=== PATIENT | male | born 1945 | race Two or more races ===

== ENCOUNTER 2016-03-27 11:05 | Outpatient (CLI) | payer MEDICARE | END 2016-03-27 23:59 | disposition home or self-care (01) | LOC: WOU 11:05 | PROVIDERS: ATTEND Podiatrist Foot & Ankle Surgery | DX: L84 Corns and callosities (principal); M20.41 Other hammer toe(s) (acquired), right foot; E11.622 Type 2 diabetes mellitus with other skin ulcer; L97.311 Non-pressure chronic ulcer of right ankle limited to breakdown of skin; B35.1 Tinea unguium; Z94.7 Corneal transplant status; I10 Essential (primary) hypertension; H40.9 Unspecified glaucoma | CPT/HCPCS: A6402; G0463 ==

== ENCOUNTER 2016-04-11 10:23 | Outpatient (CLI) | payer MEDICARE | END 2016-04-11 23:59 | disposition home or self-care (01) | LOC: WOU 10:23 | PROVIDERS: ATTEND Podiatrist Foot & Ankle Surgery | DX: E11.621 Type 2 diabetes mellitus with foot ulcer (principal); L97.511 Non-pressure chronic ulcer of other part of right foot limited to breakdown of skin; E11.42 Type 2 diabetes mellitus with diabetic polyneuropathy; I10 Essential (primary) hypertension; E11.52 Type 2 diabetes mellitus with diabetic peripheral angiopathy with gangrene | CPT/HCPCS: 11042; A6402 ==

== ENCOUNTER 2016-04-17 11:02 | Outpatient (CLI) | payer MEDICARE | END 2016-04-17 23:59 | disposition home or self-care (01) | LOC: WOU 11:02 | PROVIDERS: ATTEND Podiatrist Foot & Ankle Surgery | DX: E11.621 Type 2 diabetes mellitus with foot ulcer (principal); L97.513 Non-pressure chronic ulcer of other part of right foot with necrosis of muscle; L97.313 Non-pressure chronic ulcer of right ankle with necrosis of muscle; E11.622 Type 2 diabetes mellitus with other skin ulcer; M20.5X9 Other deformities of toe(s) (acquired), unspecified foot | CPT/HCPCS: 11043; A6402 ==

== ENCOUNTER 2016-05-08 10:10 | Outpatient (CLI) | payer MEDICARE | END 2016-05-08 23:59 | disposition home or self-care (01) | LOC: WOU 10:10 | PROVIDERS: ATTEND Podiatrist Foot & Ankle Surgery | DX: E11.621 Type 2 diabetes mellitus with foot ulcer (principal); L97.411 Non-pressure chronic ulcer of right heel and midfoot limited to breakdown of skin; M20.41 Other hammer toe(s) (acquired), right foot; H40.9 Unspecified glaucoma; I10 Essential (primary) hypertension | CPT/HCPCS: 11043; A6402 ==

== ENCOUNTER 2016-05-23 10:12 | Outpatient (CLI) | payer MEDICARE | END 2016-05-23 23:59 | disposition home or self-care (01) | LOC: WOU 10:12 | PROVIDERS: ATTEND Podiatrist Foot & Ankle Surgery | DX: E11.621 Type 2 diabetes mellitus with foot ulcer (principal); L97.514 Non-pressure chronic ulcer of other part of right foot with necrosis of bone; L02.415 Cutaneous abscess of right lower limb; M20.5X9 Other deformities of toe(s) (acquired), unspecified foot; Z94.7 Corneal transplant status; M20.10 Hallux valgus (acquired), unspecified foot | CPT/HCPCS: 11044; 87070; A6402; 87186-TC ==

== ENCOUNTER 2016-06-06 08:35 | Outpatient (CLI) | payer MEDICARE | END 2016-06-06 23:59 | disposition home or self-care (01) | LOC: WOU 08:35 | PROVIDERS: ATTEND Podiatrist Foot & Ankle Surgery | DX: E11.621 Type 2 diabetes mellitus with foot ulcer (principal); L97.514 Non-pressure chronic ulcer of other part of right foot with necrosis of bone; E11.69 Type 2 diabetes mellitus with other specified complication; M86.171 Other acute osteomyelitis, right ankle and foot; L03.115 Cellulitis of right lower limb | CPT/HCPCS: 11044; A6402 ==

== ENCOUNTER 2016-06-12 07:55 | Outpatient (CLI) | payer MEDICARE ==
[2016-06-12] MEDS ORDERED: INSU100I24 SQ ×2 (14:41)
[2016-06-12] MEDS ORDERED: METF500T4 PO (14:41)
[2016-06-12] MEDS ORDERED: TIMO5DRO4 EACHEYE (14:41)
[2016-06-12] MEDS ORDERED: PRED5DRO7 EACHEYE (14:41)
[2016-06-12] MEDS ORDERED: LOSA50TA21 PO (14:41)
[2016-06-12] MEDS ORDERED: CEPH-570 PO (14:41)
[2016-06-12] MEDS ORDERED: VALA500T35 PO (14:41)
== END 2016-06-12 23:59 | disposition home or self-care (01) ==
LOC: WOU 07:55
PROVIDERS: ATTEND Podiatrist Foot & Ankle Surgery
DX: E11.69 Type 2 diabetes mellitus with other specified complication (principal); L97.514 Non-pressure chronic ulcer of other part of right foot with necrosis of bone; L03.031 Cellulitis of right toe; M20.41 Other hammer toe(s) (acquired), right foot; E11.40 Type 2 diabetes mellitus with diabetic neuropathy, unspecified; M20.11 Hallux valgus (acquired), right foot
CPT/HCPCS: A6402; G0463

== ENCOUNTER 2016-06-12 13:18 | Inpatient (IN) | payer MEDICARE ==
[~2016-06-12] VITALS: Ht 175.3 cm; Wt 77.1 kg
[2016-06-12 14:00] VITALS: BP 168/80
[2016-06-12] MEDS ORDERED: LOSA50TA21 PO (14:41)
[2016-06-12] MEDS ORDERED: METF500T4 PO (14:41)
[2016-06-12] MEDS ORDERED: TIMO5DRO4 EACHEYE (14:41)
[2016-06-12] MEDS ORDERED: INSU100I24 SQ ×2 (14:41)
[2016-06-12] MEDS ORDERED: PRED5DRO7 EACHEYE (14:41)
[2016-06-12] MEDS ORDERED: CEPH-570 PO (14:41)
[2016-06-12] MEDS ORDERED: VALA500T35 PO (14:41)
--- NOTE | 2016-06-12 14:45 | NUR ---
MS RN ADMITTING NOTES: PT ALERT AND ORIENTED X4. PT RESTING ON BED. PHOTO TAKEN ON RIGHT 3RD TOE. IV GAUGE 22 STARTED ON RIGHT FOREARM. DR. BOWERS AWARE OF ADMISSION. NO SIGNS AND SYMPTOMS OF DISTRESS OR SOB.
[2016-06-12 15:18] LABS: EOSINOPHILS # (AUTO) 0.1 /CMM (0.0-0.7); EOSINOPHILS % (AUTO) 3.6 % (0.0-6.0); HEMATOCRIT 38 % (39-51); HEMOGLOBIN 12.7 g/dL (13.5-17.5); LYMPHOCYTES # (AUTO) 1.2 /CMM (0.8-4.8); LYMPHOCYTES % (AUTO) 31.4 % (20.0-44.0); MEAN CORPUSCULAR HEMOGLOBIN 34 PG (26.0-33.0); MEAN CORPUSCULAR HGB CONC 34 g/dl (31.0-36.0); MEAN CORPUSCULAR VOLUME 99 fL (80-96); MONOCYTES # (AUTO) 0.3 /CMM (0.1-1.30); MONOCYTES % (AUTO) 6.7 % (2.0-12.0); NEUTROPHILS # (AUTO) 2.2 /CMM (1.8-8.9); NEUTROPHILS % (AUTO) 57.3 % (43.0-81.0); PLATELET COUNT (AUTO) 259 /CMM (150-450); RDW COEFFICIENT OF VARIATION 12.7 (11.5-15.0); RED BLOOD CELL COUNT(AUTO) 3.79 MIL/uL (4.5-6.0); WHITE BLOOD COUNT (AUTO) 3.8 K/uL (4.3-11.0)
[2016-06-12 16:00] VITALS: BP 135/76
[2016-06-12] MEDS ORDERED: ACETAMINOPHEN 325 MG TABLET PO PRN (16:00)
[2016-06-12] MEDS ORDERED: ONDANSETRON HCL/PF 4 MG/2 ML VIAL IVP PRN (16:00)
[2016-06-12] MEDS ORDERED: MAG HYDROX/AL HYDROX/SIMETH 30 ML UDC PO PRN (16:00)
[2016-06-12] MEDS ORDERED: PIPERACILLIN /TAZOBACTAM 4.5 G in IV D5W 50 ML IV SCH (16:00)
[2016-06-12] MEDS ORDERED: MAGNESIUM HYDROXIDE 30 ML UDC PO PRN (16:00)
[2016-06-12] MEDS ORDERED: DEXTROSE 50%-WATER 50 ML DISP.SYRIN IV PRN (16:00)
[2016-06-12] MEDS ORDERED: ZOLPIDEM TARTRATE 5 MG TABLET PO PRN (16:00)
[2016-06-12] MEDS ORDERED: Z GUARD REMEDY 2 OZ OINT TP PRN (16:00)
[2016-06-12] MEDS ORDERED: VANCOMYCIN 1 GM in IV D5W 250 ML IV SCH (16:00)
[2016-06-12 16:02] LABS: ALBUMIN 3.5 g/dL (3.4-5.0); BILIRUBIN,TOTAL 0.4 mg/dL (0.2-1.0); CALCIUM, SERUM 8.5 mg/dL (8.5-10.1); CREATININE 0.9 mg/dL (0.6-1.3); POTASSIUM 4.1 mmol/L (3.5-5.1); TOTAL PROTEIN, SERUM 6.7 g/dL (6.4-8.2)
[2016-06-12] MEDS ORDERED: FEE PK DOSING 1 MIN EA MC ONE (16:47)
[2016-06-12] MEDS ORDERED: TIMOLOL 0.5% SOLN OPHTH 5 ML BOTTLE EACHEYE SCH (17:00)
[2016-06-12] MEDS: LOSARTAN POTASSIUM 50 MG TABLET PO SCH (17:26)
[2016-06-12] MEDS: VALACYCLOVIR HCL 500 MG TABLET PO SCH (17:26)
[2016-06-12] MEDS: METFORMIN 500 MG TABLET PO SCH (17:27)
[2016-06-12] MEDS: ENOXAPARIN SODIUM 40 MG/0.4 ML DISP.SYRIN SQ SCH (17:29)
[2016-06-12] MEDS: BLOOD SUGAR DIAGNOSTIC 1 EACH STRIP VI SCH ×2 (17:41→21:31)
[2016-06-12] MEDS ORDERED: IV SET PRIMARY PUMP SET 1 EA INFUS.SET MC ONE (17:56)
[2016-06-12] MEDS ORDERED: SECONDARY IV SET 1 EA INFUS.SET MC ONE ×2 (17:57→19:56)
[2016-06-12] MEDS ORDERED: IV NS 0.9% 250 ML IV ONE (17:57)
[2016-06-12] MEDS: VANCOMYCIN 1 GM in IV D5W 250 ML IV SCH (18:07)
[2016-06-12] MEDS: INSULIN REGULAR, HUMAN 100 UNIT/ML 3 ML VIAL SQ PRN (18:18)
[2016-06-12] MEDS: PIPERACILLIN /TAZOBACTAM 3.375 G in IV D5W 50 ML IV SCH ×2 (19:02→23:41)
--- NOTE | 2016-06-12 19:12 | NUR ---
MS RN CLOSING NOTES: PT IS ALERT AND ORIENTED X4. NEEDS ATTENDED AND ANTICIPATED. CLEAN AND DRY. ENDORSED TO PROCESS IMPROVEMENT CONSULTANT TO CONTINUE CARE.
--- NOTE | 2016-06-12 19:51 | NUR ---
RECEIVED PATIENT IN BED, ALERT AND ORIENTED X4, CALM, NO DISTRESS, NO SOB, ON ROOM AIR, ABLE TO VERBALIZE NEEDS, DENIES ANY PAIN AT THIS TIME, RIGHT FOOT IS OFFLOADED, WILL HAVE DEBRIDEMENT IN AM. EXPLAINED TO PATIENT NPO AFTER MIDNIGHT, PATIENT VERBALIZED UNDERSTANDING. NEEDS ATTENDED, CALL LIGHT WITHIN REACH.
[2016-06-12 20:00] VITALS: BP 134/71
[2016-06-12] MEDS: INSULIN DETEMIR 100 UNIT/ML CARTRIDGE SQ SCH (21:37)
[2016-06-12] MEDS: *INSULIN REGULAR(HUMULIN R)HUM 100 UNIT/ML VIAL SQ PRN (21:38)
--- NOTE | 2016-06-12 21:38 | NUR ---
LEVEMIR 20 UNITS AND INSULIN HELD. PATIENT IS NPO AFTER MIDNIGHT FOR SCHEDULED DEBRIDEMENT IN AM. BG 179 MG/DL
[2016-06-13] MEDS: VANCOMYCIN 1 GM in IV D5W 250 ML IV SCH ×2 (04:08→16:25)
[2016-06-13] MEDS: PIPERACILLIN /TAZOBACTAM 3.375 G in IV D5W 50 ML IV SCH ×3 (05:32→18:01)
[2016-06-13] MEDS: BLOOD SUGAR DIAGNOSTIC 1 EACH STRIP VI SCH ×4 (06:18→21:32)
--- NOTE | 2016-06-13 06:51 | NUR ---
PATIENT IN BED, ALERT AND AWAKE, NO DISTRESS, NO COMPLAIN OF PAIN. NPO SINCE MIDNIGHT FOR RIGHT FOOT DEBRIDEMENT IN AM. ALL DUE MEDICATIONS GIVEN, CALL LIGHT WITHIN REACH.
--- NOTE | 2016-06-13 06:54 | NUR ---
BG 129 MG/DL, NO INSULIN COVERAGE, NPO SINCE MIDNIGHT FOR RIGHT FOOT DEBRIDEMENT
[2016-06-13 07:12] LABS: BASOPHILS % (AUTO) 1.1 % (0.0-2.0); EOSINOPHILS # (AUTO) 0.2 /CMM (0.0-0.7); EOSINOPHILS % (AUTO) 5.1 % (0.0-6.0); HEMATOCRIT 40 % (39-51); HEMOGLOBIN 13.9 g/dL (13.5-17.5); LYMPHOCYTES # (AUTO) 1.2 /CMM (0.8-4.8); LYMPHOCYTES % (AUTO) 34.8 % (20.0-44.0); MEAN CORPUSCULAR HEMOGLOBIN 34 PG (26.0-33.0); MEAN CORPUSCULAR HGB CONC 35 g/dl (31.0-36.0); MEAN CORPUSCULAR VOLUME 98 fL (80-96); MONOCYTES # (AUTO) 0.3 /CMM (0.1-1.30); MONOCYTES % (AUTO) 7.6 % (2.0-12.0); NEUTROPHILS # (AUTO) 1.8 /CMM (1.8-8.9); NEUTROPHILS % (AUTO) 51.4 % (43.0-81.0); PLATELET COUNT (AUTO) 263 /CMM (150-450); RDW COEFFICIENT OF VARIATION 12.6 (11.5-15.0); WHITE BLOOD COUNT (AUTO) 3.4 K/uL (4.3-11.0)
--- NOTE | 2016-06-13 07:17 | NUR ---
MS/RN OPENING NOTES PATIENT RECEIVED AWAKE IN BED IN NO ACUTE SIGNS OF DISTRESS. ALERT AND ORIENTED X4. ABLE TO VERBALIZED NEEDS, NO C/O PAIN OR DISCOMFORTS VOICED AT THIS TIME. ON ROOM AIR, TOLERATING WELL WITH NO SOB NOTED. IV ACCESS TO RIGHT HAND G# 22 INTACT AND PATENT. RIGHT FOOT IS OFFLOADED, FOR DEBRIDEMENT OF RIGHT FOOT THIS MORNING. NPO AFTER MIDNIGHT ENFORCED AND PATIENT VERBALIZED UNDERSTANDING. CALL LIGHT WITHIN REACH. WILL CONTINUE TO MONITOR ACCORDINGLY.
[2016-06-13] MEDS: PANTOPRAZOLE 40 MG TABLET.DR PO SCH (07:35)
[2016-06-13 07:58] LABS: THYROID STIMULATING HORMONE 2.305 uIU/mL (0.358-3.74)
[2016-06-13 08:10] LABS: CALCIUM, SERUM 8.7 mg/dL (8.5-10.1); CREATININE 0.9 mg/dL (0.6-1.3); MAGNESIUM 1.9 mg/dL (1.8-2.4); PHOSPHORUS 3.3 mg/dL (2.5-4.9); POTASSIUM 3.8 mmol/L (3.5-5.1)
[2016-06-13] MEDS: METFORMIN 500 MG TABLET PO SCH ×2 (08:41→16:27)
[2016-06-13] MEDS: VALACYCLOVIR HCL 500 MG TABLET PO SCH ×2 (08:41→16:27)
[2016-06-13] MEDS: LOSARTAN POTASSIUM 50 MG TABLET PO SCH ×2 (08:42→16:27)
[2016-06-13] MEDS: prednisoLONE ACET 1% OPHT DROP 5 ML BOTTLE EACHEYE SCH (08:43)
[2016-06-13] MEDS: TIMOLOL 0.5% SOLN OPHTH 5 ML BOTTLE LEFTEYE SCH ×2 (08:45→16:26)
[2016-06-13] MEDS ORDERED: MIDAZOLAM HCL 2 MG/2ML VIAL ONE (09:08)
[2016-06-13] MEDS ORDERED: FENTANYL PF 100MCG/2ML AMPUL ONE (09:08)
--- NOTE | 2016-06-13 09:24 | NUR ---
RN NOTES PATIENT LEFT UNIT VIA WHEELCHAIR TO OR FOR RIGHT FOOT DEBRIDEMENT. ALERT AND ORINETED X 4, NO C/O PAIN @ THIS TIME. ALL CONSENT'S FOR PROCEDURES SIGNED. PRE PROCEDURE CHECKLIST/ASSESSMENT DONE. WILL FOLLOW-UP
[2016-06-13] MEDS ORDERED: LIDOCAINE HCL/PF 1% 30 ML SDV ONE (09:30)
--- NOTE | 2016-06-13 10:31 | NUR ---
RN/NOTES PATIENT CAME BACK FROM OR/RECOVERY ROOM POST DEBRIDEMENT OF RIGHT FOOT 3RD TOE (ARTHROPLASTY). ALERT AND ORIENTED X 3, NO COMPLAINTS OF PAIN @ THIS TIME. DRESSING TO RIGHT FOOT IN PLACE, NO BLEEDING NOTED. RECOMMENDED TO RESUME MEDS AND DIET, ELEVATE RIGHT FOOT WITH 2 PILLOWS. V/S CHECKED; 137/73MMHG, HR 77, R 18, 97.9F AND 02 SAT 94%. WILL CONTINUE TO MONITO ACCORDINGLY. WILL CONTINUE TO MONITOR.
--- NOTE | 2016-06-13 13:06 | NUR ---
GENERATOR MECHANIC WOUND CARE WILL DEFER TO DPM DR CALIX AT THIS TIME. PATIENT WITH ADRY AT 22
[2016-06-13] MEDS: LACTOBACILLUS RHAMNOSUS GG 1 EACH CAP.SPRINK PO SCH (16:27)
[2016-06-13] MEDS: INSULIN REGULAR, HUMAN 100 UNIT/ML 3 ML VIAL SQ PRN (17:13)
--- NOTE | 2016-06-13 18:38 | NUR ---
MS/RN CLOSING NOTES PATIENT IN BED ALERT AND ORIENTED X4, NO ACUTE SIGNS OF DISTRESS NOTED DURING THE DAY. PATIENT WITH NO VERBALIZATION OF PAIN EVEN AFTER DEBRIDEMENT OF RIGHT FOOT 3RD TOE. ON ROOM AIR, TOLERATING WELL WITH NO SOB NOTED. IV ACCESS TO RIGHT HAND G# 22 INTACT AND PATENT. RIGHT FOOT IS OFFLOADED USING TWO PILLOWS. CALL LIGHT WITHIN REACH. ALL NEEDS AND CARE PROVIDED. DUE MEDS GIVEN ORDERED. WILL ENDORSED TO SCIENTIFIC TECHNICAL WRITER FOR CONTINUITY OF CARE
--- NOTE | 2016-06-13 19:45 | NUR ---
ENGRAVING PRESS OPERATOR INITIAL NOTES RECEIVED REPORT FROM AM NURSE LASHON, CHECKED, PT HE'S AWAKE AND ALERT WATCHING TV WITH SMILE ON HIS FACE. DRESSING DRY AND INTACT ON HIS RIGHT LOWER EXTREMITIES S/P WOUND DEBRIDEMENT WHICH IS DONE TODAY. RIGHT HAND HEPLOCK PATENT AND INTACT. I TOLD HIM ABOUT HIS MEDICATION AND MIDLINE INSERTION AND PT UNDERSTOOD WELL. KEPT HIS RIGHT LEG OFFLOAD AT ALL TIMES. WILL CONTINUE TO MONITOR. PLACE CALL LIGHT AT REACH.
[2016-06-13 20:00] VITALS: BP 144/73
[2016-06-13] MEDS: ENOXAPARIN SODIUM 40 MG/0.4 ML DISP.SYRIN SQ SCH (21:26)
[2016-06-13] MEDS: INSULIN DETEMIR 100 UNIT/ML CARTRIDGE SQ SCH (21:36)
[2016-06-13] MEDS: HYDROCODONE/APAP 5/325MG 1 EACH TABLET PO PRN (21:37)
[2016-06-13] MEDS: *INSULIN REGULAR(HUMULIN R)HUM 100 UNIT/ML VIAL SQ PRN (21:42)
--- NOTE | 2016-06-13 22:00 | NUR ---
INSTALLERS MECHANICAL/NOTES ROUTINE MEDS GIVEN AND BLOOD SUGAR CHECKED DONE 168, LEVEMIR GIVEN WELL REGULAR INSULIN , SNACKS ALSO SERVED. NO SIGNS OF HYPER/HYPO GLYCEMIA NOTED/ WILL CONTINUE TO MONITOR.
--- NOTE | 2016-06-14 | NUR ---
SAP MOBILITY ARCHITECT/NOTES PT SLEEPING COMFORTABLY IN BED WITHOUT ANY ACUTE DISTRESS NOTED. KEPT HIM COMFORTABLE AT ALL TIMES. WILL CONTINUE TO MONITOR. PLACE CALL LIGHT AT REACH.
[2016-06-14] MEDS: PIPERACILLIN /TAZOBACTAM 3.375 G in IV D5W 50 ML IV SCH ×5 (00:26→23:30)
[2016-06-14] MEDS: BLOOD SUGAR DIAGNOSTIC 1 EACH STRIP VI SCH ×4 (06:18→21:21)
[2016-06-14] MEDS: VANCOMYCIN 1 GM in IV D5W 250 ML IV SCH ×3 (06:20→21:20)
[2016-06-14] MEDS: PANTOPRAZOLE 40 MG TABLET.DR PO SCH (06:20)
--- NOTE | 2016-06-14 06:43 | NUR ---
SUPERVISOR FRAME ASSEMBLY/NOTES PT WOKE UP, BLOOD SUGAR CHECKED DONE 117, NO INSULIN GIVEN ORDERED. NO SIGNS OF HYPO GLYCEMIA NOTED. ROUTINE MED ALSO GIVEN. KEPT HIM COMFORTABLE AT ALL TIMES. WILL CONTINUE TO MONITOR.
--- NOTE | 2016-06-14 07:12 | NUR ---
MS CONTACT PRINTER DRY FILM CLOSING NOTES PT AWAKE AND ALERT WATCHING TV, DENIES ANY PAIN, DRESSING ON HIS RIGHT FOOT DRY AND INTACT. ALL DUE MEDS GIVEN. STABLE STEPHANI THE NIGHT AND SLEPT WELL. KEPT HIM COMFORTABLE AT ALL TIMES. PLACE CALL LIGHT AT REACH. PT STATED "THANK YOU ". WILL ENDORSE TO AM NURSE FOR CONTINUITY OF CARE.
--- NOTE | 2016-06-14 07:17 | NUR ---
MS/RN OPENING NOTES RECEIVED PATIENT IN BED AWAKE, ALERT AND ORIENTED X 4. ABLE TO VERBALIZED NEEDS AND WANTS, NO C/O PAIN OR DISCOMFORTS AT THIS TIME. RIGHT FOOT OFFLOADED WITH 2 PILLOWS. IV ACCESS ON RIGHT HAND G#22 INTACT AND PATENT. BED IN LOW POSITION AND LOCKED WITH CALL LIGHT WITH IN REACH. SAFETY MEASURES MAINTAINED. WILL CONTINUE TO MONITOR ACCORDINGLY
--- NOTE | 2016-06-14 08:00 | NUR ---
RN NOTES PELON GRAY INSERTED MIDLINE ON RIGHT UPPER ARM G# 18 WITH NO COMPLICATION OR BLEEDING NOTED.
[2016-06-14] MEDS: VALACYCLOVIR HCL 500 MG TABLET PO SCH ×2 (08:26→17:14)
[2016-06-14] MEDS: LOSARTAN POTASSIUM 50 MG TABLET PO SCH ×2 (08:26→17:24)
[2016-06-14] MEDS: METFORMIN 500 MG TABLET PO SCH ×2 (08:26→17:14)
[2016-06-14] MEDS: LACTOBACILLUS RHAMNOSUS GG 1 EACH CAP.SPRINK PO SCH ×2 (08:26→17:14)
[2016-06-14] MEDS: prednisoLONE ACET 1% OPHT DROP 5 ML BOTTLE EACHEYE SCH (08:27)
[2016-06-14] MEDS: TIMOLOL 0.5% SOLN OPHTH 5 ML BOTTLE LEFTEYE SCH ×2 (09:53→17:29)
[2016-06-14] MEDS: INSULIN REGULAR, HUMAN 100 UNIT/ML 3 ML VIAL SQ PRN (12:35)
--- NOTE | 2016-06-14 12:50 | NUR ---
RN NOTES PATIENT'S POST OP RIGHT BOOT CAME. PT EVALUATED PATIENT AND ABLE TO WALK WITH IT WITH WALKER AND ASSISTANCE. PATIENT ON WEIGHT BEARING ON RIGHT HEEL TOLERATED. WILL CONTINUE TO MONITOR.
[2016-06-14] MEDS: HYDROCODONE/APAP 5/325MG 1 EACH TABLET PO PRN (17:23)
--- NOTE | 2016-06-14 18:41 | NUR ---
MS/RN CLOSING NOTES PATIENT RESTING IN BED AT MODERATE HIGH BACKREST. ALERT AND ORIENTED X 4 WITH NO SIGNS OF ACUTE DISTRESS DURING SHIFT. VERBALLY RESPONSIVE WITH COMPLAINTS OF PAIN X 1 ON RIGHT FOOT, PRN NORCO 5/325MG GIVEN WITH GOOD RESULTS. RIGHT FOOT KEPT ELEVATED WITH 2 PILLOWS. IV ACCESS ON RIGHT HAND G#22 AND MIDLINE ON KADEN G# 18 INTACT AND PATENT. ANTIBIOTIC THERAPIES OF VANCOMYCIN IVPB AND ZOSYN IVPB ADMINISTERED WITH NO ADVERSE REACTIONS NOTED. ALL DUE MEDS GIVEN ORDERED AND TOLERATED. BED IN LOW POSITION AND LOCKED WITH CALL LIGHT WITH IN REACH. SAFETY MEASURES MAINTAINED. ALL NEEDS AND CARE WELL ATTENDED. WILL ENDORSED TO GREEN BUILDING ENERGY ENGINEER FOR CONTINUITY OF CARE.
--- NOTE | 2016-06-14 19:30 | NUR ---
RN NOTES RECEIVED PT. AWAKE ON BED, A/OX4, DRESSING ON THE RIGHT FOOT DRY AND INTACT, , DENIES PAIN, NO SOB, CALL LIGHT WITHIN REACH, SIDERAILS UPX2 CONTINUE TO MONITOR
[2016-06-14 20:00] VITALS: BP 161/75
[2016-06-14 20:20] VITALS: BP 161/81
[2016-06-14] MEDS: ENOXAPARIN SODIUM 40 MG/0.4 ML DISP.SYRIN SQ SCH (21:19)
[2016-06-14] MEDS: *INSULIN REGULAR(HUMULIN R)HUM 100 UNIT/ML VIAL SQ PRN (21:30)
[2016-06-14] MEDS: INSULIN DETEMIR 100 UNIT/ML CARTRIDGE SQ SCH (21:31)
[2016-06-14] MEDS ORDERED: SECONDARY IV SET 1 EA INFUS.SET MC ONE (21:33)
[2016-06-15] MEDS: PIPERACILLIN /TAZOBACTAM 3.375 G in IV D5W 50 ML IV SCH ×3 (05:21→18:51)
[2016-06-15] MEDS: VANCOMYCIN 1 GM in IV D5W 250 ML IV SCH ×3 (06:13→21:36)
[2016-06-15 07:18] LABS: CALCIUM, SERUM 8.8 mg/dL (8.5-10.1); CREATININE 0.8 mg/dL (0.6-1.3); POTASSIUM 4.3 mmol/L (3.5-5.1)
--- NOTE | 2016-06-15 07:30 | NUR ---
RN NOTES PT IN BED, AWAKE, ALERT AND ORIENTED, NO COMPLAINT OF PAIN, RESPIRATIONS NORMAL, ASSISTED TO BATHROOM NEEDED, CALL LIGHT WITHIN REACH.
[2016-06-15 08:00] VITALS: BP 158/90
[2016-06-15] MEDS: METFORMIN 500 MG TABLET PO SCH ×2 (08:14→17:00)
[2016-06-15] MEDS: LACTOBACILLUS RHAMNOSUS GG 1 EACH CAP.SPRINK PO SCH ×2 (08:14→17:00)
[2016-06-15] MEDS: VALACYCLOVIR HCL 500 MG TABLET PO SCH ×2 (08:14→17:00)
[2016-06-15] MEDS: prednisoLONE ACET 1% OPHT DROP 5 ML BOTTLE EACHEYE SCH (08:14)
[2016-06-15] MEDS: PANTOPRAZOLE 40 MG TABLET.DR PO SCH (08:14)
[2016-06-15] MEDS: TIMOLOL 0.5% SOLN OPHTH 5 ML BOTTLE LEFTEYE SCH ×2 (08:14→17:00)
[2016-06-15] MEDS: LOSARTAN POTASSIUM 50 MG TABLET PO SCH ×2 (08:15→17:01)
[2016-06-15] MEDS: BLOOD SUGAR DIAGNOSTIC 1 EACH STRIP VI SCH ×4 (08:18→21:40)
[2016-06-15] MEDS: INSULIN REGULAR, HUMAN 100 UNIT/ML 3 ML VIAL SQ PRN ×2 (11:45→17:19)
--- NOTE | 2016-06-15 12:20 | NUR ---
RN NOTES PT IN BED, AWAKE, ALERT AND ORIENTED, DENIES PAIN, NOT IN DISTRESS, PT SEEN BY DR. CALIX, PLAN OF CARE DISCUSSED WITH PT, VERBALIZED UNDERSTANDING, CALL LIGHT WITHIN REACH, BLOOD SUGAR CHECKED, INSULIN GIVEN PER SLIDING SCALE ORDERED.
[2016-06-15 16:00] VITALS: BP 160/90
--- NOTE | 2016-06-15 19:04 | NUR ---
RN NOTES PT IN BED, AWAKE, ALERT AND ORIENTED, NOT IN PAIN, NOT IN DISTRESS, TOLERATING CURRENT DIET WELL, CALL LIGHT WITHIN REACH, IV ATB GIVEN ORDERED, BLOOD SUGAR CHECKED, INSULIN GIVEN PER SLIDING SCALE ORDERED, ALL NEEDS ATTENDED.
[2016-06-15 20:00] VITALS: BP 163/74
--- NOTE | 2016-06-15 20:03 | NUR ---
MS/RN OPENING NOTES RECEIVED PATIENT IN BED, SITTING POSITION, ALERT, ORIENTEDX3. ABLE TO VERBALIZE NEEDS. NO S/S OF DISCOMFORT OR DISTRESS. CALL LIGHTS WITHIN REACH. PROVIDE SAFETY INSTRUCTION AND ABLE TO VERBALIZED UNDERSTANDING. WILL CONTINUE TO MONITOR.
[2016-06-15 20:37] VITALS: BP 163/74
[2016-06-15] MEDS: ENOXAPARIN SODIUM 40 MG/0.4 ML DISP.SYRIN SQ SCH (21:37)
[2016-06-15] MEDS ORDERED: SECONDARY IV SET 1 EA INFUS.SET MC ONE (21:43)
[2016-06-15] MEDS: INSULIN DETEMIR 100 UNIT/ML CARTRIDGE SQ SCH (21:58)
[2016-06-15] MEDS: *INSULIN REGULAR(HUMULIN R)HUM 100 UNIT/ML VIAL SQ PRN (22:04)
[2016-06-16] MEDS: PIPERACILLIN /TAZOBACTAM 3.375 G in IV D5W 50 ML IV SCH ×5 (00:04→23:43)
[2016-06-16] MEDS: VANCOMYCIN 1 GM in IV D5W 250 ML IV SCH (05:01)
[2016-06-16] MEDS: BLOOD SUGAR DIAGNOSTIC 1 EACH STRIP VI SCH ×4 (05:58→21:29)
--- NOTE | 2016-06-16 06:12 | NUR ---
MS/RN CLOSING NOTES PATIENT IN BED. ABLE TO SLEEP DURING THE NIGHT. NO S/S OF SOB OR DISTRESS OBSERVE OR VERBALIZE. CAN VERBALIZE NEEDS AT ALL TIMES. COOPERATIVE TO CARE. CALL LIGHTS WITHIN REACH. ATTEND TO NEEDS AT ALL TIMES. IV ATN ADMINISTERED WITH NO S/S OF ADVERSE REACTION. WILL CONTINUE TO MONITOR AND ENDORSE TO AM RN FOR YOUSIF.
[2016-06-16 07:07] LABS: CALCIUM, SERUM 8.6 mg/dL (8.5-10.1); CREATININE 0.8 mg/dL (0.6-1.3); POTASSIUM 3.6 mmol/L (3.5-5.1)
--- NOTE | 2016-06-16 07:30 | NUR ---
RN OPEN NOTES RECEIVED REPORT FROM GLASS MECHANIC NURSE. PATIENT IS ALERT AND ORIENTED TO NAME, TIME AND PLACE. IV POTENT AND INTACT. NO SIGN AND SYMPTOMS OF DISTRESS. DENIED PAIN. BED IN LOW POSITION, LOCKED AND 2 SIDE RAILS ARE UP. WILL CONTINUE TO ASSESS AND MONITOR PATIENT THROUGH OUT MY SHIFT.
[2016-06-16 08:04] VITALS: BP 156/78
[2016-06-16] MEDS ORDERED: IV NS 0.9% 250 ML IV ONE (08:11)
[2016-06-16] MEDS ORDERED: IV SET PRIMARY PUMP SET 1 EA INFUS.SET MC ONE (08:11)
[2016-06-16] MEDS: LACTOBACILLUS RHAMNOSUS GG 1 EACH CAP.SPRINK PO SCH ×2 (08:18→16:37)
[2016-06-16] MEDS: METFORMIN 500 MG TABLET PO SCH ×2 (08:19→16:37)
[2016-06-16] MEDS: VALACYCLOVIR HCL 500 MG TABLET PO SCH ×2 (08:19→16:37)
[2016-06-16] MEDS: PANTOPRAZOLE 40 MG TABLET.DR PO SCH (08:19)
[2016-06-16] MEDS: LOSARTAN POTASSIUM 50 MG TABLET PO SCH ×2 (08:19→16:37)
[2016-06-16] MEDS: prednisoLONE ACET 1% OPHT DROP 5 ML BOTTLE EACHEYE SCH (08:20)
[2016-06-16] MEDS: TIMOLOL 0.5% SOLN OPHTH 5 ML BOTTLE LEFTEYE SCH ×2 (08:21→16:38)
[2016-06-16] MEDS: INSULIN REGULAR, HUMAN 100 UNIT/ML 3 ML VIAL SQ PRN (12:13)
[2016-06-16] MEDS ORDERED: SET RED CAP 1 EA INFUS.SET MC ONE (14:12)
[2016-06-16] MEDS: VANCOMYCIN 0.75 GM in IV D5W 250 ML IV SCH ×2 (14:13→21:20)
[2016-06-16] MEDS ORDERED: PNEUMOCOCCAL 23-VAL P-SAC VAC 0.5 ML VIAL SQ ONE (15:05)
[2016-06-16 15:54] VITALS: BP 147/86
[2016-06-16] MEDS: *INSULIN REGULAR(HUMULIN R)HUM 100 UNIT/ML VIAL SQ PRN ×2 (16:45→21:27)
--- NOTE | 2016-06-16 18:56 | NUR ---
RN CLOSING NOTES PATIENT IS IN BED, AWAKE AND ALERT X3. PATIENT CONDITION IS STABLE. NO SIGNS AND SYMPTOMS OF DISTRESS. IV SITE IS POTENT AND INTACT. BED IS IN LOW POSITION, LOCKED AND 2 SIDE RAILS ARE UP. PNEUMONIA VACCINE ADMINISTERED TODAY. POSSIBLE DC'S IN AM. WILL ENDORSE TO NCA CERTIFIED CONCIERGE NURSE
--- NOTE | 2016-06-16 19:20 | NUR ---
RN OPEN NOTES RECEIVED PATIENT AWAKE IN BED. A/OX4. NO SIGNS OF DISTRESS OR DISCOMFORT. BREATHING EVEN AND UNLABORED. KADEN MIDLINE PATENT AND INTACT. NO SIGNS OF REDNESS OR INFILTRATION. DRESSING ON R FOOT C/D/I. PATIENT DENIES ANY PAIN AT THIS TIME. BED IN LOW LOCKED POSITION WITH SIDE RAILS X2. CALL LIGHT WITHIN REACH. WILL CONTINUE TO MONITOR.
[2016-06-16 20:00] VITALS: BP 141/83
[2016-06-16] MEDS: HYDROCODONE/APAP 5/325MG 1 EACH TABLET PO PRN (21:22)
[2016-06-16] MEDS: ENOXAPARIN SODIUM 40 MG/0.4 ML DISP.SYRIN SQ SCH (21:24)
--- NOTE | 2016-06-16 21:25 | NUR ---
RN NOTES ADMINISTERED NORCO 5/325 PRN FOR PAIN 5/10 IN RIGHT FOOT. WILL CONTINUE TO MONITOR.
[2016-06-16] MEDS: INSULIN DETEMIR 100 UNIT/ML CARTRIDGE SQ SCH (21:26)
[2016-06-17] MEDS: VANCOMYCIN 0.75 GM in IV D5W 250 ML IV SCH ×2 (05:24→13:59)
--- NOTE | 2016-06-17 06:08 | NUR ---
RN CLOSING NOTES PATIENT AWAKE IN BED. A/OX4. NO SIGNS OF DISTRESS OR DISCOMFORT. BREATHING EVEN AND UNLABORED. IV ACCESS IN R HAND AND KADEN MIDLINE PATENT AND INTACT. NO SIGNS OF REDNESS OR INFILTRATION. DRESSING ON R FOOT C/D/I. PATIENT DENIES ANY PAIN AT THIS TIME. KEPT CLEAN DRY AND COMFORTABLE. NO SIGNIFICANT CHANGES THROUGH OUT SHIFT. ALL NEEDS MET. BED IN LOW LOCKED POSITION WITH SIDE RAILS X2. CALL LIGHT WITHIN REACH. WILL ENDORSE TO AM SHIFT FOR YOUSIF.
[2016-06-17] MEDS: PIPERACILLIN /TAZOBACTAM 3.375 G in IV D5W 50 ML IV SCH ×2 (06:32→11:44)
[2016-06-17] MEDS: BLOOD SUGAR DIAGNOSTIC 1 EACH STRIP VI SCH ×2 (06:39→11:56)
--- NOTE | 2016-06-17 07:30 | NUR ---
MS RN NOTES RECEIVED PATIENT AWAKE ON BED, WATCHING TV. AOX3 ABLE TO VERBALIZED HIS NEEDS, BREATHING EVEN AN NON LABORED. DENIES ANY PAIN AT THIS TIME. WITH LEFT FOOT DRESSING DRY AND INTACT. CALL LIGHT WITHIN REACH BED IN LOW POSITION, FOR SAFETY MEASURES. WILL CONTINUE TO MONITOR.
[2016-06-17 07:51] LABS: CALCIUM, SERUM 8.5 mg/dL (8.5-10.1); CREATININE 0.9 mg/dL (0.6-1.3); POTASSIUM 3.8 mmol/L (3.5-5.1)
[2016-06-17 08:00] VITALS: BP 143/82
[2016-06-17 08:35] VITALS: BP 143/82
[2016-06-17] MEDS: VALACYCLOVIR HCL 500 MG TABLET PO SCH (08:35)
[2016-06-17] MEDS: LOSARTAN POTASSIUM 50 MG TABLET PO SCH (08:35)
[2016-06-17] MEDS: METFORMIN 500 MG TABLET PO SCH (08:35)
[2016-06-17] MEDS: PANTOPRAZOLE 40 MG TABLET.DR PO SCH (08:36)
[2016-06-17] MEDS: prednisoLONE ACET 1% OPHT DROP 5 ML BOTTLE EACHEYE SCH (08:36)
[2016-06-17] MEDS: LACTOBACILLUS RHAMNOSUS GG 1 EACH CAP.SPRINK PO SCH (08:36)
[2016-06-17] MEDS: TIMOLOL 0.5% SOLN OPHTH 5 ML BOTTLE LEFTEYE SCH (08:37)
--- NOTE | 2016-06-17 10:00 | NUR ---
MS RN NOTES S/B DR. TIMMONS WITH NEW ORDERS MADE AND CARRIED OUT. PATIENT FOR DC HOME TODAY.
[2016-06-17] MEDS: *INSULIN REGULAR(HUMULIN R)HUM 100 UNIT/ML VIAL SQ PRN (12:00)
--- NOTE | 2016-06-17 15:00 | NUR ---
MS RN NOTES ALL DC INSTRUCTIONS, BELONGINGS AND MEDICATIONS DISCUSSED AND GIVEN TO THE PATIENT. AND VERBALIZED UNDERSTANDING. RH PIV REMOVED AND PRESSURE DRESSING APPLIED. KADEN MIDLINE KEPT IN PLACED FOR VANCOMYCIN IV TO BE GIVEN BY HOME HEALTH. PATIENT ACCOMPANIED BY MAUDE NORRIS TO THE [facility], AMBULATORY WITH FWW IN STABLE CONDITION. PATIENT WAS PICKED UP BY HIS FRIEND
== END 2016-06-17 15:10 | disposition home health service (06) | DRG 629 ==
LOC: WOUND3 13:18
PROVIDERS: ADMIT Podiatrist Foot & Ankle Surgery
PROC: 0QBQ0ZZ Excision of Right Toe Phalanx, Open Approach (ICD-10-PCS; principal; 2016-06-13 09:41)
PROC: 05H533Z Insertion of Infusion Device into Right Subclavian Vein, Percutaneous Approach (ICD-10-PCS; 2016-06-14)
DX: E11.69 Type 2 diabetes mellitus with other specified complication (principal); M86.171 Other acute osteomyelitis, right ankle and foot; Z79.4 Long term (current) use of insulin; L97.519 Non-pressure chronic ulcer of other part of right foot with unspecified severity; I10 Essential (primary) hypertension; E78.5 Hyperlipidemia, unspecified; E11.621 Type 2 diabetes mellitus with foot ulcer; H40.9 Unspecified glaucoma; M20.41 Other hammer toe(s) (acquired), right foot; Z86.19 Personal history of other infectious and parasitic diseases
CPT/HCPCS: 36415; 36569; 71010-TC; 80048-TC; 80053-TC; 80061-TC; 80202-TC; 82962-TC; 83735-TC; 84100-TC; 84443-TC; 85025-TC; 87070-TC; 87075-TC; 87081-TC; 88305-TC; 88311-TC; 88312-TC; 90732; 93307-TC; 97001-TC; A6209; A6402; J1650; J1815; J2250; J2543; J2704; J3010; J3370; J3490; J7050; J7060

== ENCOUNTER 2016-06-20 09:30 | Outpatient (CLI) | payer MEDICARE ==
[~2016-06-20 09:30] MED LIST: INSU100I24 SQ; LOSA50TA21 PO; METF500T4 PO; PRED5DRO7 EACHEYE; TIMO5DRO4 EACHEYE; VALA500T35 PO
== END 2016-06-20 23:59 | disposition home health service (06) ==
LOC: WOU 09:30
PROVIDERS: ATTEND Podiatrist Foot & Ankle Surgery
DX: Z47.89 Encounter for other orthopedic aftercare (principal); Z48.01 Encounter for change or removal of surgical wound dressing
CPT/HCPCS: A6402; G0463

== ENCOUNTER 2016-06-27 07:55 | Outpatient (CLI) | payer MEDICARE | END 2016-06-27 23:59 | disposition home or self-care (01) | LOC: WOU 07:55 | PROVIDERS: ATTEND Podiatrist Foot & Ankle Surgery | DX: Z48.01 Encounter for change or removal of surgical wound dressing (principal); M86.8X7 Other osteomyelitis, ankle and foot | CPT/HCPCS: A6402; G0463 ==

== ENCOUNTER 2016-07-10 09:35 | Outpatient (CLI) | payer MEDICARE | END 2016-07-10 23:59 | disposition home health service (06) | LOC: WOU 09:35 | PROVIDERS: ATTEND Podiatrist Foot & Ankle Surgery | DX: Z09 Encounter for follow-up examination after completed treatment for conditions other than malignant neoplasm (principal); R60.0 Localized edema; M20.41 Other hammer toe(s) (acquired), right foot; L85.3 Xerosis cutis | CPT/HCPCS: G0463 ==

== ENCOUNTER 2016-07-24 09:36 | Outpatient (CLI) | payer MEDICARE | END 2016-07-24 23:59 | disposition home or self-care (01) | LOC: WOU 09:36 | PROVIDERS: ATTEND Podiatrist Foot & Ankle Surgery | DX: Z51.89 Encounter for other specified aftercare (principal); Z94.7 Corneal transplant status; M20.41 Other hammer toe(s) (acquired), right foot; I10 Essential (primary) hypertension; E11.36 Type 2 diabetes mellitus with diabetic cataract | CPT/HCPCS: G0463 ==

== ENCOUNTER 2016-09-25 10:05 | Outpatient (CLI) | payer MEDICARE | END 2016-09-25 23:59 | disposition home health service (06) | LOC: WOU 10:05 | PROVIDERS: ATTEND Podiatrist Foot & Ankle Surgery | DX: E11.622 Type 2 diabetes mellitus with other skin ulcer (principal); L97.319 Non-pressure chronic ulcer of right ankle with unspecified severity; L02.416 Cutaneous abscess of left lower limb; E11.40 Type 2 diabetes mellitus with diabetic neuropathy, unspecified | CPT/HCPCS: 11042; 87070-TC; 87075-TC; A6402 ==

== ENCOUNTER 2016-10-02 10:15 | Outpatient (CLI) | payer MEDICARE | END 2016-10-02 23:59 | disposition home health service (06) | LOC: WOU 10:15 | PROVIDERS: ATTEND Podiatrist Foot & Ankle Surgery | DX: E11.622 Type 2 diabetes mellitus with other skin ulcer (principal); L97.311 Non-pressure chronic ulcer of right ankle limited to breakdown of skin; L03.115 Cellulitis of right lower limb; R60.0 Localized edema | CPT/HCPCS: 11042; A6402 ==

== ENCOUNTER 2016-10-10 10:10 | Outpatient (CLI) | payer MEDICARE | END 2016-10-10 23:59 | disposition home health service (06) | LOC: WOU 10:10 | PROVIDERS: ATTEND Podiatrist Foot & Ankle Surgery | DX: E11.9 Type 2 diabetes mellitus without complications (principal); R60.0 Localized edema | CPT/HCPCS: G0463 ==

== ENCOUNTER 2016-10-31 12:30 | Outpatient (CLI) | payer MEDICARE | END 2016-10-31 23:59 | disposition home health service (06) | LOC: WOU 12:30 | PROVIDERS: ATTEND Podiatrist Foot & Ankle Surgery | DX: E11.621 Type 2 diabetes mellitus with foot ulcer (principal); L97.511 Non-pressure chronic ulcer of other part of right foot limited to breakdown of skin; R60.0 Localized edema; M25.571 Pain in right ankle and joints of right foot; Z79.84 Long term (current) use of oral hypoglycemic drugs | CPT/HCPCS: 11042; A6402 ==

== ENCOUNTER 2016-11-14 10:08 | Outpatient (CLI) | payer MEDICARE | END 2016-11-14 23:59 | disposition home health service (06) | LOC: WOU 10:08 | PROVIDERS: ATTEND Podiatrist Foot & Ankle Surgery | DX: E11.621 Type 2 diabetes mellitus with foot ulcer (principal); L97.511 Non-pressure chronic ulcer of other part of right foot limited to breakdown of skin; R60.0 Localized edema | CPT/HCPCS: 11042; 87070-TC; 87075-TC; 87186-TC; A6402 ==

== ENCOUNTER 2016-11-21 10:10 | Outpatient (CLI) | payer MEDICARE | END 2016-11-21 23:59 | disposition home or self-care (01) | LOC: WOU 10:10 | PROVIDERS: ATTEND Podiatrist Foot & Ankle Surgery | DX: Z48.817 Encounter for surgical aftercare following surgery on the skin and subcutaneous tissue (principal) | CPT/HCPCS: A6402; G0463 ==

== ENCOUNTER 2016-12-05 09:31 | Outpatient (CLI) | payer MEDICARE | END 2016-12-05 23:59 | disposition home health service (06) | LOC: WOU 09:31 | PROVIDERS: ATTEND Podiatrist Foot & Ankle Surgery | DX: E11.621 Type 2 diabetes mellitus with foot ulcer (principal); L97.511 Non-pressure chronic ulcer of other part of right foot limited to breakdown of skin; L03.115 Cellulitis of right lower limb; B96.5 Pseudomonas (aeruginosa) (mallei) (pseudomallei) as the cause of diseases classified elsewhere; R60.0 Localized edema; L02.611 Cutaneous abscess of right foot | CPT/HCPCS: 10060; 10140; 11042; 87070-TC; 87075-TC; 87186-TC; A6402 ==

== ENCOUNTER 2016-12-12 09:26 | Outpatient (CLI) | payer MEDICARE | END 2016-12-12 23:59 | disposition home health service (06) | LOC: WOU 09:26 | PROVIDERS: ATTEND Podiatrist Foot & Ankle Surgery | DX: E11.621 Type 2 diabetes mellitus with foot ulcer (principal); L97.511 Non-pressure chronic ulcer of other part of right foot limited to breakdown of skin; L03.115 Cellulitis of right lower limb; B95.8 Unspecified staphylococcus as the cause of diseases classified elsewhere; B96.5 Pseudomonas (aeruginosa) (mallei) (pseudomallei) as the cause of diseases classified elsewhere | CPT/HCPCS: 11042; A6402 ==

== ENCOUNTER 2016-12-19 09:14 | Outpatient (CLI) | payer MEDICARE | END 2016-12-19 23:59 | disposition home health service (06) | LOC: WOU 09:14 | PROVIDERS: ATTEND Podiatrist Foot & Ankle Surgery | DX: E11.621 Type 2 diabetes mellitus with foot ulcer (principal); L97.511 Non-pressure chronic ulcer of other part of right foot limited to breakdown of skin; L02.611 Cutaneous abscess of right foot; B96.5 Pseudomonas (aeruginosa) (mallei) (pseudomallei) as the cause of diseases classified elsewhere; B95.8 Unspecified staphylococcus as the cause of diseases classified elsewhere | CPT/HCPCS: 11042; A6402 ==

== ENCOUNTER 2016-12-26 09:15 | Outpatient (CLI) | payer MEDICARE | END 2016-12-26 23:59 | disposition home health service (06) | LOC: WOU 09:15 | PROVIDERS: ATTEND Podiatrist Foot & Ankle Surgery | DX: E11.621 Type 2 diabetes mellitus with foot ulcer (principal); L97.511 Non-pressure chronic ulcer of other part of right foot limited to breakdown of skin; L02.611 Cutaneous abscess of right foot; B96.89 Other specified bacterial agents as the cause of diseases classified elsewhere; L03.115 Cellulitis of right lower limb | CPT/HCPCS: 10060; 11042; 87070; 87075; A6402 ==

== ENCOUNTER 2017-01-02 09:30 | Outpatient (CLI) | payer MEDICARE | END 2017-01-02 23:59 | disposition home health service (06) | LOC: WOU 09:30 | PROVIDERS: ATTEND Podiatrist Foot & Ankle Surgery | DX: E11.621 Type 2 diabetes mellitus with foot ulcer (principal); L97.511 Non-pressure chronic ulcer of other part of right foot limited to breakdown of skin; L03.115 Cellulitis of right lower limb; R60.0 Localized edema; Z79.84 Long term (current) use of oral hypoglycemic drugs | CPT/HCPCS: 11042; A6402 ==

== ENCOUNTER 2017-01-16 09:30 | Outpatient (CLI) | payer MEDICARE | END 2017-01-16 23:59 | disposition home health service (06) | LOC: WOU 09:30 | PROVIDERS: ATTEND Podiatrist Foot & Ankle Surgery | DX: E11.621 Type 2 diabetes mellitus with foot ulcer (principal); L97.511 Non-pressure chronic ulcer of other part of right foot limited to breakdown of skin; L03.115 Cellulitis of right lower limb | CPT/HCPCS: 11042; 87070; A6402 ==

== ENCOUNTER 2017-01-23 09:20 | Outpatient (CLI) | payer MEDICARE | END 2017-01-23 23:59 | disposition home health service (06) | LOC: WOU 09:20 | PROVIDERS: ATTEND Podiatrist Foot & Ankle Surgery | DX: E11.621 Type 2 diabetes mellitus with foot ulcer (principal); L97.511 Non-pressure chronic ulcer of other part of right foot limited to breakdown of skin; R60.0 Localized edema | CPT/HCPCS: 11042; A6402 ==

== ENCOUNTER 2017-01-30 09:40 | Outpatient (CLI) | payer MEDICARE | END 2017-01-30 23:59 | disposition home health service (06) | LOC: WOU 09:40 | PROVIDERS: ATTEND Podiatrist Foot & Ankle Surgery | DX: E11.621 Type 2 diabetes mellitus with foot ulcer (principal); L97.511 Non-pressure chronic ulcer of other part of right foot limited to breakdown of skin; Z18.89 Other specified retained foreign body fragments | CPT/HCPCS: 11042; A6402 ==

== ENCOUNTER 2017-02-13 09:30 | Outpatient (CLI) | payer MEDICARE | END 2017-02-13 23:59 | disposition home health service (06) | LOC: WOU 09:30 | PROVIDERS: ATTEND Podiatrist Foot & Ankle Surgery | DX: E11.621 Type 2 diabetes mellitus with foot ulcer (principal); L97.511 Non-pressure chronic ulcer of other part of right foot limited to breakdown of skin; R60.0 Localized edema; M79.5 Residual foreign body in soft tissue; Z79.84 Long term (current) use of oral hypoglycemic drugs | CPT/HCPCS: 11042; A6402 ==

== ENCOUNTER 2017-02-20 09:30 | Outpatient (CLI) | payer MEDICARE | END 2017-02-20 23:59 | disposition home or self-care (01) | LOC: WOU 09:30 | PROVIDERS: ATTEND Podiatrist Foot & Ankle Surgery | DX: E11.621 Type 2 diabetes mellitus with foot ulcer (principal); L97.511 Non-pressure chronic ulcer of other part of right foot limited to breakdown of skin; M79.5 Residual foreign body in soft tissue; R60.0 Localized edema; I10 Essential (primary) hypertension; Z94.7 Corneal transplant status; Z83.3 Family history of diabetes mellitus; Z82.3 Family history of stroke; Z82.49 Family history of ischemic heart disease and other diseases of the circulatory system; Z79.84 Long term (current) use of oral hypoglycemic drugs | CPT/HCPCS: 11042; 11043; A6402 ==

== ENCOUNTER 2017-02-27 09:30 | Outpatient (CLI) | payer MEDICARE | END 2017-02-27 23:59 | disposition home or self-care (01) | LOC: WOU 09:30 | PROVIDERS: ATTEND Podiatrist Foot & Ankle Surgery | DX: E11.621 Type 2 diabetes mellitus with foot ulcer (principal); L97.511 Non-pressure chronic ulcer of other part of right foot limited to breakdown of skin | CPT/HCPCS: 11042; A6402 ==

== ENCOUNTER 2017-03-06 09:30 | Outpatient (CLI) | payer MEDICARE ==
[~2017-03-06 09:30] MED LIST changes: +PRED5DRO16 EACHEYE; -PRED5DRO7 EACHEYE; -VALA500T35 PO; +VALA500T36 PO
== END 2017-03-06 23:59 | disposition home or self-care (01) ==
LOC: WOU 09:30
PROVIDERS: ATTEND Podiatrist Foot & Ankle Surgery
DX: E11.621 Type 2 diabetes mellitus with foot ulcer (principal); L97.513 Non-pressure chronic ulcer of other part of right foot with necrosis of muscle; E11.42 Type 2 diabetes mellitus with diabetic polyneuropathy; Z86.19 Personal history of other infectious and parasitic diseases; Z79.84 Long term (current) use of oral hypoglycemic drugs
CPT/HCPCS: 11043; A6402

== ENCOUNTER 2017-03-20 09:30 | Outpatient (CLI) | payer MEDICARE | END 2017-03-20 23:59 | disposition home or self-care (01) | LOC: WOU 09:30 | PROVIDERS: ATTEND Podiatrist Foot & Ankle Surgery | DX: E11.621 Type 2 diabetes mellitus with foot ulcer (principal); L97.513 Non-pressure chronic ulcer of other part of right foot with necrosis of muscle; M79.5 Residual foreign body in soft tissue | CPT/HCPCS: 11043; A6402 ==

== ENCOUNTER 2017-04-03 09:31 | Outpatient (CLI) | payer MEDICARE | END 2017-04-03 23:59 | disposition home or self-care (01) | LOC: WOU 09:31 | PROVIDERS: ATTEND Podiatrist Foot & Ankle Surgery | DX: E11.621 Type 2 diabetes mellitus with foot ulcer (principal); L97.515 Non-pressure chronic ulcer of other part of right foot with muscle involvement without evidence of necrosis; Z18.89 Other specified retained foreign body fragments; Z79.4 Long term (current) use of insulin | CPT/HCPCS: 11043; A6209; A6402 ==

== ENCOUNTER 2017-04-16 09:30 | Outpatient (CLI) | payer MEDICARE | END 2017-04-16 23:59 | disposition home or self-care (01) | LOC: WOU 09:30 | PROVIDERS: ATTEND Podiatrist Foot & Ankle Surgery | DX: E11.621 Type 2 diabetes mellitus with foot ulcer (principal); L97.515 Non-pressure chronic ulcer of other part of right foot with muscle involvement without evidence of necrosis; H40.9 Unspecified glaucoma; R60.0 Localized edema; L02.611 Cutaneous abscess of right foot | CPT/HCPCS: 11042; A6209; A6402 ==

== ENCOUNTER 2017-05-01 09:30 | Outpatient (CLI) | payer MEDICARE | END 2017-05-01 23:59 | disposition home or self-care (01) | LOC: WOU 09:30 | PROVIDERS: ATTEND Specialist | DX: E11.621 Type 2 diabetes mellitus with foot ulcer (principal); L97.519 Non-pressure chronic ulcer of other part of right foot with unspecified severity; I10 Essential (primary) hypertension; T84.9XXD Unspecified complication of internal orthopedic prosthetic device, implant and graft, subsequent encounter; E11.9 Type 2 diabetes mellitus without complications; Z79.84 Long term (current) use of oral hypoglycemic drugs | CPT/HCPCS: A6402; G0463 ==

== ENCOUNTER 2017-05-14 09:30 | Outpatient (CLI) | payer MEDICARE | END 2017-05-14 23:59 | disposition home or self-care (01) | LOC: WOU 09:30 | PROVIDERS: ATTEND Specialist | DX: E11.9 Type 2 diabetes mellitus without complications (principal); Z86.31 Personal history of diabetic foot ulcer; Z94.7 Corneal transplant status; I10 Essential (primary) hypertension | CPT/HCPCS: A6402; G0463 ==

== ENCOUNTER 2017-05-28 09:10 | Outpatient (CLI) | payer MEDICARE | END 2017-05-28 23:55 | disposition home or self-care (01) | LOC: WOU 09:10 | PROVIDERS: ATTEND Podiatrist Foot & Ankle Surgery | DX: R60.0 Localized edema (principal) | CPT/HCPCS: G0463 ==

== ENCOUNTER 2017-07-09 09:30 | Outpatient (CLI) | payer MEDICARE | END 2017-07-09 23:59 | disposition home or self-care (01) | LOC: WOU 09:30 | PROVIDERS: ATTEND Podiatrist Foot & Ankle Surgery | DX: B35.1 Tinea unguium (principal); E11.42 Type 2 diabetes mellitus with diabetic polyneuropathy; Z79.4 Long term (current) use of insulin; B35.3 Tinea pedis | CPT/HCPCS: G0463 ==

== ENCOUNTER 2017-08-27 09:24 | Outpatient (CLI) | payer MEDICARE ==
[~2017-08-27 09:24] MED LIST changes: +METF-440 PO; -METF500T4 PO
== END 2017-08-27 23:59 | disposition home or self-care (01) ==
LOC: WOU 09:24
PROVIDERS: ATTEND Podiatrist Foot & Ankle Surgery
DX: T85.79XD Infection and inflammatory reaction due to other internal prosthetic devices, implants and grafts, subsequent encounter (principal); B35.1 Tinea unguium; R60.0 Localized edema
CPT/HCPCS: G0463

== ENCOUNTER 2017-10-15 09:20 | Outpatient (CLI) | payer MEDICARE ==
[~2017-10-15 09:20] MED LIST changes: -METF-440 PO; +METF500T6 PO
[2017-10-15 10:42] LABS: BASOPHILS % (AUTO) 0.8 % (0.0-2.0); EOSINOPHILS % (AUTO) 3.5 % (0.0-6.0); HEMATOCRIT 39 % (39-51); HEMOGLOBIN 13.5 g/dL (13.5-17.5); LYMPHOCYTES # (AUTO) 1.3 /CMM (0.8-4.8); MEAN CORPUSCULAR HEMOGLOBIN 35 PG (26.0-33.0); MEAN CORPUSCULAR HGB CONC 35 g/dl (31.0-36.0); MEAN CORPUSCULAR VOLUME 100 fL (80-96); MONOCYTES # (AUTO) 0.3 /CMM (0.1-1.30); MONOCYTES % (AUTO) 7.5 % (2.0-12.0); NEUTROPHILS % (AUTO) 53.2 % (43.0-81.0); PLATELET COUNT (AUTO) 256 /CMM (150-450); RDW COEFFICIENT OF VARIATION 13.1 (11.5-15.0); RED BLOOD CELL COUNT(AUTO) 3.88 MIL/uL (4.5-6.0); WHITE BLOOD COUNT (AUTO) 3.7 K/uL (4.3-11.0)
== END 2017-10-15 23:59 | disposition home or self-care (01) ==
LOC: WOU 09:20
PROVIDERS: ATTEND Podiatrist Foot & Ankle Surgery
DX: L03.115 Cellulitis of right lower limb (principal); I87.2 Venous insufficiency (chronic) (peripheral); E11.42 Type 2 diabetes mellitus with diabetic polyneuropathy; Z79.84 Long term (current) use of oral hypoglycemic drugs; R60.9 Edema, unspecified
CPT/HCPCS: 36415; 85025; 86140; G0463; Z7610

== ENCOUNTER 2017-10-22 09:25 | Outpatient (CLI) | payer MEDICARE | END 2017-10-22 23:59 | disposition home health service (06) | LOC: WOU 09:25 | PROVIDERS: ATTEND Podiatrist Foot & Ankle Surgery | DX: L03.115 Cellulitis of right lower limb (principal); R60.0 Localized edema; I87.2 Venous insufficiency (chronic) (peripheral) | CPT/HCPCS: A6402; G0463; Z7610 ==

== ENCOUNTER 2017-11-06 12:30 | Outpatient (CLI) | payer MEDICARE | END 2017-11-06 23:59 | disposition home or self-care (01) | LOC: WOU 12:30 | PROVIDERS: ATTEND Podiatrist Foot & Ankle Surgery | DX: L03.115 Cellulitis of right lower limb (principal); R60.0 Localized edema; I87.2 Venous insufficiency (chronic) (peripheral) | CPT/HCPCS: G0463; Z7610 ==

== ENCOUNTER 2017-11-19 09:46 | Outpatient (CLI) | payer MEDICARE | END 2017-11-19 23:59 | disposition home or self-care (01) | LOC: WOU 09:46 | PROVIDERS: ATTEND Podiatrist Foot & Ankle Surgery | DX: Z09 Encounter for follow-up examination after completed treatment for conditions other than malignant neoplasm (principal); R60.0 Localized edema; I87.2 Venous insufficiency (chronic) (peripheral); Z87.2 Personal history of diseases of the skin and subcutaneous tissue | CPT/HCPCS: G0463; Z7610 ==

== ENCOUNTER 2018-08-19 09:30 | Outpatient (CLI) | payer MEDICARE ==
[~2018-08-19 09:30] MED LIST changes: -LOSA50TA21 PO; +LOSA50TA39 PO; +METF-440 PO; -METF500T6 PO
== END 2018-08-19 23:59 | disposition home or self-care (01) ==
LOC: WOU 09:30
PROVIDERS: ATTEND Podiatrist Foot & Ankle Surgery
DX: I87.2 Venous insufficiency (chronic) (peripheral) (principal); L84 Corns and callosities; B35.1 Tinea unguium; R60.0 Localized edema; M79.672 Pain in left foot; M79.671 Pain in right foot
CPT/HCPCS: G0463

== ENCOUNTER 2018-10-21 09:20 | Outpatient (CLI) | payer MEDICARE | END 2018-10-21 23:59 | disposition home or self-care (01) | LOC: WOU 09:20 | PROVIDERS: ATTEND Podiatrist Foot & Ankle Surgery | DX: E11.621 Type 2 diabetes mellitus with foot ulcer (principal); L97.512 Non-pressure chronic ulcer of other part of right foot with fat layer exposed; L84 Corns and callosities; B35.1 Tinea unguium; M79.671 Pain in right foot; M20.40 Other hammer toe(s) (acquired), unspecified foot; M77.51 Other enthesopathy of right foot and ankle; Z79.4 Long term (current) use of insulin | CPT/HCPCS: G0463 ==

== ENCOUNTER 2018-10-28 09:25 | Outpatient (CLI) | payer MEDICARE | END 2018-10-28 23:59 | disposition home or self-care (01) | LOC: WOU 09:25 | PROVIDERS: ATTEND Podiatrist Foot & Ankle Surgery | DX: M20.11 Hallux valgus (acquired), right foot (principal); M20.40 Other hammer toe(s) (acquired), unspecified foot | CPT/HCPCS: G0463 ==

== ENCOUNTER 2018-12-12 09:00 | Outpatient (CLI) | payer MEDICARE | END 2018-12-12 23:59 | disposition home or self-care (01) | LOC: WOU 09:00 | PROVIDERS: ATTEND Podiatrist Foot & Ankle Surgery | PROC: 0HBRXZZ Excision of Toe Nail, External Approach (ICD-10-PCS; principal; 2018-12-12) | DX: B35.1 Tinea unguium (principal); M20.40 Other hammer toe(s) (acquired), unspecified foot; M20.11 Hallux valgus (acquired), right foot; M79.672 Pain in left foot; M79.671 Pain in right foot; L89.890 Pressure ulcer of other site, unstageable | CPT/HCPCS: G0463 ==

== ENCOUNTER 2019-02-17 09:30 | Outpatient (CLI) | payer MEDICARE | END 2019-02-17 23:59 | disposition home or self-care (01) | LOC: WOU 09:30 | PROVIDERS: ATTEND Podiatrist Foot & Ankle Surgery | DX: L89.891 Pressure ulcer of other site, stage 1 (principal); S90.212A Contusion of left great toe with damage to nail, initial encounter; X58.XXXA Exposure to other specified factors, initial encounter; Y92.89 Other specified places as the place of occurrence of the external cause; B35.1 Tinea unguium; M20.11 Hallux valgus (acquired), right foot; M20.41 Other hammer toe(s) (acquired), right foot; E11.9 Type 2 diabetes mellitus without complications; Z79.4 Long term (current) use of insulin; I10 Essential (primary) hypertension | CPT/HCPCS: 11730; A6209 ==

== ENCOUNTER 2019-02-24 09:10 | Outpatient (CLI) | payer MEDICARE | END 2019-02-24 23:59 | disposition home or self-care (01) | LOC: WOU 09:10 | PROVIDERS: ATTEND Podiatrist Foot & Ankle Surgery | DX: L97.528 Non-pressure chronic ulcer of other part of left foot with other specified severity (principal); E11.42 Type 2 diabetes mellitus with diabetic polyneuropathy; Z79.4 Long term (current) use of insulin | CPT/HCPCS: 17250; A6209 ==

== ENCOUNTER 2019-03-03 08:30 | Outpatient (CLI) | payer MEDICARE | END 2019-03-03 23:59 | disposition home or self-care (01) | LOC: WOU 08:30 | PROVIDERS: ATTEND Podiatrist Foot & Ankle Surgery | DX: S90.112A Contusion of left great toe without damage to nail, initial encounter (principal); X58.XXXA Exposure to other specified factors, initial encounter; Y92.89 Other specified places as the place of occurrence of the external cause; B35.1 Tinea unguium; M20.11 Hallux valgus (acquired), right foot; M20.12 Hallux valgus (acquired), left foot | CPT/HCPCS: 17250; A6209 ==

== ENCOUNTER 2019-05-05 08:30 | Outpatient (CLI) | payer MEDICARE ==
[~2019-05-05 08:30] MED LIST changes: -VALA500T36 PO; +VALA500T40 PO
== END 2019-05-05 23:59 | disposition home or self-care (01) ==
LOC: WOU 08:30
PROVIDERS: ATTEND Podiatrist Foot & Ankle Surgery
DX: B35.1 Tinea unguium (principal); L84 Corns and callosities; M20.41 Other hammer toe(s) (acquired), right foot
CPT/HCPCS: G0463

== ENCOUNTER 2019-08-04 08:45 | Outpatient (CLI) | payer MEDICARE | END 2019-08-04 23:59 | disposition home or self-care (01) | LOC: WOU 08:45 | PROVIDERS: ATTEND Podiatrist Foot & Ankle Surgery | DX: B35.1 Tinea unguium (principal); E11.42 Type 2 diabetes mellitus with diabetic polyneuropathy; L84 Corns and callosities; M21.371 Foot drop, right foot; M20.41 Other hammer toe(s) (acquired), right foot; Z79.4 Long term (current) use of insulin | CPT/HCPCS: G0463 ==

== ENCOUNTER 2019-10-27 08:30 | Outpatient (CLI) | payer MEDICARE | END 2019-10-27 23:59 | disposition home or self-care (01) | LOC: WOU 08:30 | PROVIDERS: ATTEND Podiatrist Foot & Ankle Surgery | DX: E11.42 Type 2 diabetes mellitus with diabetic polyneuropathy (principal); B35.1 Tinea unguium; L84 Corns and callosities; M21.371 Foot drop, right foot; M20.41 Other hammer toe(s) (acquired), right foot; Z79.4 Long term (current) use of insulin | CPT/HCPCS: G0463 ==

== ENCOUNTER 2020-01-05 08:35 | Outpatient (CLI) | payer MEDICARE | END 2020-01-05 23:59 | disposition home or self-care (01) | LOC: WOU 08:35 | PROVIDERS: ATTEND Podiatrist Foot & Ankle Surgery | DX: B35.1 Tinea unguium (principal); E11.42 Type 2 diabetes mellitus with diabetic polyneuropathy; Z79.4 Long term (current) use of insulin; L84 Corns and callosities; M20.41 Other hammer toe(s) (acquired), right foot; M21.371 Foot drop, right foot | CPT/HCPCS: G0463 ==

== ENCOUNTER 2020-03-15 08:35 | Outpatient (CLI) | payer MEDICARE ==
[2020-03-15] MEDS ORDERED: BACI/NEOM/POLY B OINT PKT 1 UDPKT PACKET ONE (09:22)
== END 2020-03-15 23:59 | disposition home or self-care (01) ==
LOC: WOU 08:35
PROVIDERS: ATTEND Podiatrist Foot & Ankle Surgery
DX: L60.0 Ingrowing nail (principal); B35.1 Tinea unguium; E11.42 Type 2 diabetes mellitus with diabetic polyneuropathy; Z79.4 Long term (current) use of insulin; L84 Corns and callosities; M20.41 Other hammer toe(s) (acquired), right foot; M21.371 Foot drop, right foot
CPT/HCPCS: 11730

== ENCOUNTER 2020-05-10 09:22 | Outpatient (CLI) | payer MEDICARE | END 2020-05-10 23:59 | disposition home or self-care (01) | LOC: WOU 09:22 | PROVIDERS: ATTEND Podiatrist Foot & Ankle Surgery | DX: B35.1 Tinea unguium (principal); E11.42 Type 2 diabetes mellitus with diabetic polyneuropathy; Z79.4 Long term (current) use of insulin; M20.41 Other hammer toe(s) (acquired), right foot; L84 Corns and callosities; M21.371 Foot drop, right foot | CPT/HCPCS: G0463 ==

== ENCOUNTER 2020-07-05 08:45 | Outpatient (CLI) | payer MEDICARE ==
[2020-07-05] MEDS ORDERED: UREA 10% -AHA 4% CREAM 57 GM TUBE ONE (09:13)
== END 2020-07-05 23:59 | disposition home or self-care (01) ==
LOC: WOU 08:45
PROVIDERS: ATTEND Podiatrist Foot & Ankle Surgery
DX: B35.1 Tinea unguium (principal); L84 Corns and callosities; E11.42 Type 2 diabetes mellitus with diabetic polyneuropathy; Z79.4 Long term (current) use of insulin; M21.371 Foot drop, right foot; M20.41 Other hammer toe(s) (acquired), right foot
CPT/HCPCS: G0463

== ENCOUNTER → 2020-09-06 | Outpatient (CLI) | payer MEDICARE | END | disposition home or self-care (01) | LOC: WOU 08:25 | PROVIDERS: ATTEND Podiatrist Foot & Ankle Surgery | DX: B35.1 Tinea unguium (principal); L84 Corns and callosities; E11.42 Type 2 diabetes mellitus with diabetic polyneuropathy; L60.0 Ingrowing nail; M21.371 Foot drop, right foot; M20.41 Other hammer toe(s) (acquired), right foot; Z79.4 Long term (current) use of insulin | CPT/HCPCS: G0463 ==

== ENCOUNTER 2020-12-06 09:15 | Outpatient (CLI) | payer MEDICARE | END 2020-12-06 23:59 | disposition home or self-care (01) | LOC: WOU 09:15 | PROVIDERS: ATTEND Podiatrist Foot & Ankle Surgery | DX: B35.1 Tinea unguium (principal); L84 Corns and callosities; E11.42 Type 2 diabetes mellitus with diabetic polyneuropathy; M20.41 Other hammer toe(s) (acquired), right foot; M21.371 Foot drop, right foot; Z79.4 Long term (current) use of insulin | CPT/HCPCS: G0463 ==

== ENCOUNTER 2021-03-07 09:10 | Outpatient (CLI) | payer MEDICARE ==
[2021-03-07] MEDS ORDERED: COLLAGENASE 5 GM TUBE UD TP ONE (09:34)
== END 2021-03-07 23:59 | disposition home or self-care (01) ==
LOC: WOU 09:10
PROVIDERS: ATTEND Podiatrist Foot & Ankle Surgery
DX: S81.811A Laceration without foreign body, right lower leg, initial encounter (principal); X58.XXXA Exposure to other specified factors, initial encounter; Y92.89 Other specified places as the place of occurrence of the external cause; E11.42 Type 2 diabetes mellitus with diabetic polyneuropathy; M20.41 Other hammer toe(s) (acquired), right foot; L84 Corns and callosities; B35.1 Tinea unguium; M21.371 Foot drop, right foot; Z79.4 Long term (current) use of insulin; Z79.84 Long term (current) use of oral hypoglycemic drugs
CPT/HCPCS: 11042

== ENCOUNTER 2021-03-21 09:45 | Outpatient (CLI) | payer MEDICARE ==
[2021-03-21] MEDS ORDERED: COLLAGENASE 5 GM TUBE UD TP ONE (10:29)
== END 2021-03-21 23:59 | disposition home or self-care (01) ==
LOC: WOU 09:45
PROVIDERS: ATTEND Podiatrist Foot & Ankle Surgery
DX: S81.811A Laceration without foreign body, right lower leg, initial encounter (principal); X58.XXXA Exposure to other specified factors, initial encounter; Y92.89 Other specified places as the place of occurrence of the external cause; E11.42 Type 2 diabetes mellitus with diabetic polyneuropathy; L84 Corns and callosities; B35.1 Tinea unguium; M21.371 Foot drop, right foot; Z79.4 Long term (current) use of insulin; Z79.84 Long term (current) use of oral hypoglycemic drugs
CPT/HCPCS: 11042

== ENCOUNTER 2021-04-04 09:20 | Outpatient (CLI) | payer MEDICARE | END 2021-04-04 23:59 | disposition home or self-care (01) | LOC: WOU 09:20 | PROVIDERS: ATTEND Podiatrist Foot & Ankle Surgery | DX: I87.2 Venous insufficiency (chronic) (peripheral) (principal); E11.42 Type 2 diabetes mellitus with diabetic polyneuropathy; B35.1 Tinea unguium; L84 Corns and callosities; M21.371 Foot drop, right foot; M20.41 Other hammer toe(s) (acquired), right foot; I10 Essential (primary) hypertension; Z79.4 Long term (current) use of insulin; Z79.84 Long term (current) use of oral hypoglycemic drugs | CPT/HCPCS: G0463 ==

== ENCOUNTER 2021-06-13 09:35 | Outpatient (CLI) | payer MEDICARE ==
[2021-06-13] MEDS ORDERED: UREA 10% -AHA 4% CREAM 57 GM TUBE ONE (10:10)
== END 2021-06-13 23:59 | disposition home or self-care (01) ==
LOC: WOU 09:35
PROVIDERS: ATTEND Podiatrist Foot & Ankle Surgery
DX: L84 Corns and callosities (principal); B35.1 Tinea unguium; E11.9 Type 2 diabetes mellitus without complications; I10 Essential (primary) hypertension
CPT/HCPCS: G0463

== ENCOUNTER 2021-08-15 09:10 | Outpatient (CLI) | payer MEDICARE | END 2021-08-15 23:59 | disposition home or self-care (01) | LOC: WOU 09:10 | PROVIDERS: ATTEND Podiatrist Foot & Ankle Surgery | DX: I87.2 Venous insufficiency (chronic) (peripheral) (principal); R23.8 Other skin changes; L84 Corns and callosities; R60.1 Generalized edema; B35.1 Tinea unguium | CPT/HCPCS: G0463 ==

== ENCOUNTER 2022-03-20 10:30 | Outpatient (CLI) | payer MEDICARE | END 2022-03-20 23:59 | disposition home or self-care (01) | LOC: WOU 10:30 | PROVIDERS: ATTEND Podiatrist Foot & Ankle Surgery | DX: L84 Corns and callosities (principal); I87.2 Venous insufficiency (chronic) (peripheral); R60.1 Generalized edema; B35.1 Tinea unguium; E11.9 Type 2 diabetes mellitus without complications; I10 Essential (primary) hypertension | CPT/HCPCS: 73630; G0463 ==